=== PATIENT | male | born 1965 | race Caucasian/White ===

== ENCOUNTER 2022-08-26 14:06 | Inpatient (IN) | payer OTHER ==
[~2022-08-26] VITALS: Ht 182.9 cm; Wt 73.9 kg
[2022-08-26 17:30] VITALS: BP 124/72
[2022-08-26] MEDS ORDERED: ONDANSETRON HCL 4 MG TABLET PO PRN (18:15)
[2022-08-26] MEDS ORDERED: ACETAMINOPHEN 325 MG TABLET PO PRN (18:30)
[2022-08-26] MEDS ORDERED: INFLUENZA VIRUS VACCINE QVS 2022-23 (6MO+)/PF 60 MCG/0.5 ML SYRINGE IM. ONE (18:45)
[2022-08-26 20:14] VITALS: BP 121/81
[2022-08-26] MEDS: TraZODone HCL 100 MG TABLET PO SCH (21:50)
[2022-08-26] MEDS: DOCUSATE SODIUM 100 MG CAPSULE PO SCH (21:50)
[2022-08-26] MEDS: MELATONIN 5 MG TABLET PO SCH (21:51)
[2022-08-26] MEDS: SENNA 187 MG TABLET PO SCH (21:51)
[2022-08-26] MEDS: ZOLPIDEM TARTRATE 5 MG TABLET PO PRN (21:54)
[2022-08-27 06:40] LABS: BASOPHILS % (AUTO) 0.2 % (0.0-2.0); EOSINOPHILS % (AUTO) 0.4 % (1.0-6.0); HEMATOCRIT 40.6 % (41-53); HEMOGLOBIN 14.4 g/dL (13.5-17.5); LYMPHOCYTES # (AUTO) 1.4 K/uL (1.0-4.8); LYMPHOCYTES % (AUTO) 14.4 % (22.0-44.0); MEAN CORPUSCULAR HEMOGLOBIN 32.7 pg (26.0-34.0); MEAN CORPUSCULAR HGB CONC 35.4 G/dL (31.0-37.0); MEAN CORPUSCULAR VOLUME 92 fL (80-100); MONOCYTES % (AUTO) 10.6 % (2.0-9.0); NEUTROPHILS # (AUTO) 7.2 K/uL (1.8-7.7); NEUTROPHILS % (AUTO) 74.4 % (40.0-70.0); PLATELET COUNT (AUTO) 197 K/uL (150-450); RED BLOOD CELL COUNT(AUTO) 4.39 MIL/uL (4.50-5.90); RED CELL DISTRIBUTION WIDTH 12.6 % (11.5-14.5)
[2022-08-27 07:00] LABS: ALANINE AMINOTRANSFERASE 30 U/L (12-78); ALBUMIN 2.8 g/dL (3.4-5.0); ALKALINE PHOSPHATASE 55 U/L (46-116); ANION GAP 4 mmol/L (8-16); ASPARTATE AMINOTRANSFERASE 24 U/L (15-37); BILIRUBIN,TOTAL 0.6 mg/dL (0.1-1.0); CALCIUM, TOTAL 8.5 mg/dL (8.8-10.5); CARBON DIOXIDE 29 mmol/L (22-29); CHLORIDE 101 mmol/L (98-107); CREATININE 0.84 mg/dL (0.60-1.30); GLUCOSE,RANDOM 85 mg/dL (70-110); SODIUM SERUM 134 mmol/L (136-145); TOTAL PROTEIN, SERUM 5.5 g/dL (6.4-8.2); UREA NITROGEN, BLOOD 27 mg/dL (7-18)
[2022-08-27 07:03] LABS: GLOMERULAR FILTR. RATE CALC > 60 mL/min (>60)
[2022-08-27 08:06] VITALS: BP 112/76
[2022-08-27] MEDS: DOCUSATE SODIUM 100 MG CAPSULE PO SCH ×2 (08:14→21:31)
[2022-08-27] MEDS: POLYETHYLENE GLYCOL 3350 17 GM PACKET PO SCH (08:14)
[2022-08-27] MEDS: DEXAMETHASONE 4 MG TABLET PO SCH (08:14)
[2022-08-27] MEDS: OMEPRAZOLE 20 MG CAPSULE PO SCH (08:20)
[2022-08-27 19:35] VITALS: BP 127/68
[2022-08-27] MEDS: SENNA 187 MG TABLET PO SCH (21:31)
[2022-08-27] MEDS: MELATONIN 5 MG TABLET PO SCH (21:31)
[2022-08-27] MEDS: ETHYL ALCOHOL 62% ANTISEPTIC NASAL SANITIZER 0.6 ML AMPUL NASAL SCH (21:31)
[2022-08-27] MEDS: ZOLPIDEM TARTRATE 5 MG TABLET PO PRN (21:31)
[2022-08-27] MEDS: TraZODone HCL 100 MG TABLET PO SCH (21:32)
[2022-08-28 08:00] VITALS: BP 120/81
[2022-08-28] MEDS: DOCUSATE SODIUM 100 MG CAPSULE PO SCH ×2 (08:14→21:31)
[2022-08-28] MEDS: POLYETHYLENE GLYCOL 3350 17 GM PACKET PO SCH (08:15)
[2022-08-28] MEDS: ETHYL ALCOHOL 62% ANTISEPTIC NASAL SANITIZER 0.6 ML AMPUL NASAL SCH ×2 (08:15→21:30)
[2022-08-28] MEDS: DEXAMETHASONE 4 MG TABLET PO SCH (08:15)
[2022-08-28] MEDS: OMEPRAZOLE 20 MG CAPSULE PO SCH (09:00)
[2022-08-28 20:14] VITALS: BP 117/64
[2022-08-28] MEDS: MELATONIN 5 MG TABLET PO SCH (21:30)
[2022-08-28] MEDS: TraZODone HCL 100 MG TABLET PO SCH (21:31)
[2022-08-28] MEDS: ZOLPIDEM TARTRATE 5 MG TABLET PO PRN (21:31)
[2022-08-28] MEDS: SENNA 187 MG TABLET PO SCH (21:31)
[2022-08-29 07:30] VITALS: BP 111/80
[2022-08-29] MEDS: ETHYL ALCOHOL 62% ANTISEPTIC NASAL SANITIZER 0.6 ML AMPUL NASAL SCH ×2 (07:48→21:17)
[2022-08-29] MEDS: DOCUSATE SODIUM 100 MG CAPSULE PO SCH ×2 (07:48→21:17)
[2022-08-29] MEDS: DEXAMETHASONE 4 MG TABLET PO SCH (07:49)
[2022-08-29] MEDS: POLYETHYLENE GLYCOL 3350 17 GM PACKET PO SCH (07:49)
[2022-08-29] MEDS: OMEPRAZOLE 20 MG CAPSULE PO SCH (07:49)
[2022-08-29 20:00] VITALS: BP 136/85
[2022-08-29] MEDS: SENNA 187 MG TABLET PO SCH (21:16)
[2022-08-29] MEDS: TraZODone HCL 100 MG TABLET PO SCH (21:16)
[2022-08-29] MEDS: MELATONIN 5 MG TABLET PO SCH (21:17)
[2022-08-30 07:30] VITALS: BP 115/65
[2022-08-30] MEDS: ETHYL ALCOHOL 62% ANTISEPTIC NASAL SANITIZER 0.6 ML AMPUL NASAL SCH ×2 (07:51→21:21)
[2022-08-30] MEDS: DOCUSATE SODIUM 100 MG CAPSULE PO SCH ×2 (07:51→21:21)
[2022-08-30] MEDS: POLYETHYLENE GLYCOL 3350 17 GM PACKET PO SCH (07:52)
[2022-08-30] MEDS: DEXAMETHASONE 4 MG TABLET PO SCH (07:52)
[2022-08-30] MEDS: OMEPRAZOLE 20 MG CAPSULE PO SCH (07:52)
[2022-08-30] MEDS ORDERED: TRAZ-257 PO (09:16)
[2022-08-30] MEDS ORDERED: DEXA4 PO (09:16)
[2022-08-30] MEDS ORDERED: OMEP20 PO (09:16)
[2022-08-30] MEDS ORDERED: ONDA-104 PO (09:16)
[2022-08-30] MEDS ORDERED: ZOLP-280 PO (09:16)
[2022-08-30 20:32] VITALS: BP 125/75
[2022-08-30] MEDS: TraZODone HCL 100 MG TABLET PO SCH (21:21)
[2022-08-30] MEDS: MELATONIN 5 MG TABLET PO SCH (21:21)
[2022-08-30] MEDS: SENNA 187 MG TABLET PO SCH (21:21)
[2022-08-30] MEDS: ZOLPIDEM TARTRATE 5 MG TABLET PO PRN (21:26)
[2022-08-31 08:01] VITALS: BP 117/71
[2022-08-31] MEDS: POLYETHYLENE GLYCOL 3350 17 GM PACKET PO SCH (08:13)
[2022-08-31] MEDS: DOCUSATE SODIUM 100 MG CAPSULE PO SCH (08:13)
[2022-08-31] MEDS: ETHYL ALCOHOL 62% ANTISEPTIC NASAL SANITIZER 0.6 ML AMPUL NASAL SCH (08:13)
[2022-08-31] MEDS: OMEPRAZOLE 20 MG CAPSULE PO SCH (08:21)
[2022-08-31] MEDS ORDERED: DEXAMETHASONE 4 MG TABLET PO SCH (09:00)
[2022-09-04] MEDS ORDERED: DEXAMETHASONE 4 MG TABLET PO SCH (09:00)
[2022-09-07] MEDS ORDERED: DEXAMETHASONE 2 MG TABLET PO SCH (09:00)
== END 2022-08-31 11:05 | disposition home health service (06) | DRG 57 ==
LOC: 2WR 17:13
PROVIDERS: ADMIT Physical Medicine & Rehabilitation; ATTEND Physical Medicine & Rehabilitation
DX: G81.91 Hemiplegia, unspecified affecting right dominant side (principal); C15.9 Malignant neoplasm of esophagus, unspecified; C78.7 Secondary malignant neoplasm of liver and intrahepatic bile duct; C79.31 Secondary malignant neoplasm of brain; E46 Unspecified protein-calorie malnutrition; G47.00 Insomnia, unspecified; R13.10 Dysphagia, unspecified; T38.0X5A Adverse effect of glucocorticoids and synthetic analogues, initial encounter; R51.9 Headache, unspecified; R11.2 Nausea with vomiting, unspecified; Z79.899 Other long term (current) drug therapy; Z68.22 Body mass index [BMI] 22.0-22.9, adult; Y92.89 Other specified places as the place of occurrence of the external cause; Z92.21 Personal history of antineoplastic chemotherapy
CPT/HCPCS: 80053; 85025; 87081; 92523; 97110; 97112; 97116; 97150; 97163; 97165; 97530; 97535; 99366; J8540; Q9967